=== PATIENT | female | born 2000 | race Caucasian/White ===

== ENCOUNTER 2023-01-27 13:35 | Inpatient (IN) | payer OTHER ==
[2023-01-27] MEDS ORDERED: Cefepime 2 GM VIAL ONE (15:40)
[2023-01-27 15:45] LABS: #Basophils 0.1 10x3/uL (0.0-0.2); #Eosinphils 0.1 10x3/uL (0.0-0.5); #Neutrophils 7.3 10x3/uL (1.5-8.4); %Basophils 0.5 % (0.0-2.0); %Eosinophils 1.2 % (0.0-6.0); %Lymphocytes 20.2 % (18.0-47.0); %Monocytes 9.7 % (0.0-10.0); %Neutrophils 68.1 % (40.0-75.0); Hemoglobin 13.4 g/dL (12.0-15.5); Mean Corpuscular HGB CONC 33.7 g/dL (32.0-36.0); Mean Corpuscular Hemoglobin 31.4 pg (27.0-33.0); Mean Corpuscular Volume 93.2 fl (81.6-98.3); Mean Platelet Volume 9.9 fl (7.4-10.4); Platelet Count 252 10x3/uL (150-450); RBC Distribution Width 13.1 % (11.5-14.5); Red Blood Cell (RBC) Count 4.27 10x6/uL (3.90-5.03); White Blood Cell (WBC) Count 10.7 10x3/uL (3.5-10.5)
[2023-01-27 16:07] LABS: ALT (SGPT) 8 U/L (8-55); AST (SGOT) 18 U/L (5-34); Albumin 4.2 g/dL (3.5-5.0); Alkaline Phosphatase 46 U/L (40-110); Anion Gap 13 mmol/L (10-20); BUN (Urea Nitrogen) 11 mg/dL (7.0-18.7); Bilirubin, Total 0.9 mg/dL (0.2-1.2); CRP (Inflammatory) 6.95 mg/dL (= or < 0.5); Calc. Creatinine Clearance 0 mL/min (70-130); Calcium 8.8 mg/dL (7.8-10.44); Carbon Dioxide 21 mmol/L (22-29); Chloride 107 mmol/L (98-107); Estimated GFR 100; Globulin 3.2 g/dL (2.4-3.5); Glucose 87 mg/dL (70-105); Potassium 3.7 mmol/L (3.5-5.1); Protein, Total 7.4 g/dL (6.0-8.3); Sodium 137 mmol/L (136-145)
[2023-01-27] MEDS ORDERED: Acetaminophen 650 MG Suppository PR PRN (16:09)
[2023-01-27] MEDS ORDERED: Acetaminophen 325 MG TAB PO PRN (16:09)
[2023-01-27] MEDS ORDERED: Vancomycin HCl 1.25 GM in Sodium Chloride 0.9% 250 ML 250 ML IVPB SCH (16:15)
[2023-01-27] MEDS ORDERED: HYDROcodone/Acetaminophen 5/325 mg Tablet PO PRN (17:02)
[2023-01-27] MEDS ORDERED: diphenhydrAMINE 50 MG/ML VIAL IVP SCH (18:00)
[2023-01-27] MEDS ORDERED: Lactated Ringer's 500 ML IV SCH (18:00)
[2023-01-27] MEDS ORDERED: Pantoprazole 40 MG VIAL IVP SCH ×2 (18:00→21:00)
[2023-01-27] MEDS ORDERED: Morphine 2 MG/ML VIAL SLOW IVP PRN (19:34)
[2023-01-27] MEDS ORDERED: Famotidine/PF 20 mg/2ml Vial ONE (19:36)
[2023-01-27] MEDS ORDERED: diphenhydrAMINE 50 MG/ML VIAL ONE (19:36)
[2023-01-27] MEDS ORDERED: methylPREDNISolone Sod Succ/PF 125 MG/2 ML VIAL ONE (19:44)
[2023-01-27] MEDS ORDERED: methylPREDNISolone Sod Succ/PF 125 MG/2 ML VIAL IVP SCH (19:45)
[2023-01-27] MEDS: Doxycycline 100 MG in Sodium Chloride 0.9% 100 ML IVPB SCH (22:20)
[2023-01-28] MEDS ORDERED: Acetaminophen 325 MG TAB ONE (00:04)
[2023-01-28] MEDS ORDERED: Cefepime 1 GM VIAL ONE (03:22)
[2023-01-28] MEDS: Cefepime 1 GM in Sodium Chloride 0.9% 100 ML IVPB SCH ×2 (03:36→16:34)
[2023-01-28 04:21] LABS: Hemoglobin 12.2 g/dL (12.0-15.5); Mean Corpuscular HGB CONC 32.5 g/dL (32.0-36.0); Mean Corpuscular Hemoglobin 30.8 pg (27.0-33.0); Mean Corpuscular Volume 94.7 fl (81.6-98.3); Platelet Count 224 10x3/uL (150-450); Red Blood Cell (RBC) Count 3.96 10x6/uL (3.90-5.03); White Blood Cell (WBC) Count 8.1 10x3/uL (3.5-10.5)
[2023-01-28 04:22] LABS: MDiff Complete? YES
[2023-01-28 04:29] LABS: Anion Gap 16 mmol/L (10-20); BUN (Urea Nitrogen) 9 mg/dL (7.0-18.7); Calc. Creatinine Clearance 0 mL/min (70-130); Calcium 9.3 mg/dL (7.8-10.44); Carbon Dioxide 18 mmol/L (22-29); Chloride 109 mmol/L (98-107); Estimated GFR 107; Glucose 144 mg/dL (70-105); Potassium 4.2 mmol/L (3.5-5.1); Sodium 139 mmol/L (136-145)
[2023-01-28 05:19] LABS: Band 2 % (5-11); Lymphocytes 3 % (21-51); Monocytes 3 % (0-10); Neutrophil 92 % (42-75); Platelet Morphology Comment Appears Adequate
[2023-01-28 07:49] LABS: Pregnancy Test - Urine (BHCG) Negative (Negative); Pregu Control Background? CLEAR/WHITE (CLR/WHITE); Pregu Control Bar Appear? YES (CONTROL BAR); Specific Gravity 1.025 (1.002-1.036)
[2023-01-28] MEDS: Doxycycline 100 MG in Sodium Chloride 0.9% 100 ML IVPB SCH ×2 (10:14→22:24)
[2023-01-28 13:04] VITALS: BMI 24.4
[2023-01-28] MEDS ORDERED: TETANUS, DIPHTHERIA TOX,ADULT (TDVAX) 0.5 ML VIAL IM ONE (13:39)
[2023-01-28] MEDS ORDERED: Ketorolac Tromethamine 30 MG/ML VIAL IVP SCH (21:45)
[2023-01-28] MEDS ORDERED: Doxycycline 100 MG VIAL ONE (21:46)
[2023-01-29] MEDS: Cefepime 1 GM in Sodium Chloride 0.9% 100 ML IVPB SCH (04:27)
[2023-01-29 08:40] VITALS: BP 118/68; TEMP 97.6
== END 2023-01-29 10:10 | disposition home or self-care (01) | DRG 603 ==
LOC: CSHERS 13:35 → CSHERHOLD 21:33 → CSHTELE 01-28 12:51
PROVIDERS: ADMIT Student in an Organized Health Care Education/Training Program; ATTEND Internal Medicine
DX: L03.116 Cellulitis of left lower limb (principal); Z88.1 Allergy status to other antibiotic agents; Z91.013 Allergy to seafood
CPT/HCPCS: 80048; 80053; 81025; 85025; 85652; 86140; 90714; 96365; 96366; 96367; 96375; J0692; J1200; J1650; J1885; J1956; J2930; J3370; J3490; J7050; S0028